=== PATIENT | female | born 1985 | race African-American/Black ===

== ENCOUNTER 2017-11-06 11:33 | Emergency (ER) | payer OTHER ==
[2017-11-06 11:50] VITALS: BP 124/61; PULSE 99; TEMP 98.5; BMI 20.3
--- NOTE | 2017-11-06 12:22 | PDOC ---
History of Present Illness <Liyah Gann - Last Filed: 11/06/17 15:03> - History of Present Illness Initial Comments: Healthy 32 year old previously healthy female presenting with sudden onset facial flushing, one episode of NBNB vomit, and lower abdominal mcelroy 6 hours before admission. The symptoms were novel, sudden onset, and spontaneously resolved without intervention. Denies recent fevers, chills, chest pain, urinary symptoms, or other symptoms. 11/06/17 14:38 <Brittany Grijalva - Last Filed: 11/06/17 16:14> - General Chief Complaint: Pain Stated Complaint: ABD PAIN, LIGHTHEADED Time Seen by Provider: 11/06/17 12:22 Past History <Liyah Gann - Last Filed: 11/06/17 15:03> - Past Medical History COPD: No Other medical history: DENIES. - Suicide/Smoking/Psychosocial Hx Smoking History: Former smoker Have you smoked in the past 12 months: No If you are a former smoker, when did you quit?: 2009 Information on smoking cessation initiated: No Hx Alcohol Use: No Drug/Substance Use Hx: No Substance Use Type: None <Brittany Grijalva - Last Filed: 11/06/17 16:14> - Past Medical History Allergies/Adverse Reactions: Allergies Allergy/AdvReac Type Severity Reaction Status Date / Time No Known Drug Allergies Allergy Verified 11/06/17 11:46 seasonal Allergy Uncoded 11/06/17 11:46 Home Medications: Ambulatory Orders Cephalexin Monohydrate [Keflex -] 500 mg PO BID #10 capsule 11/06/17 Review of Systems - Review of Systems Constitutional: No: Chills, Diaphoresis, Fever, Loss of Appetite HEENTM: No: Blurred Vision, Recent change in vision Respiratory: No: Cough, Shortness of Breath, Wheezing, Productive cough Cardiac (ROS): No: Chest Pain, Edema ABD/GI: Yes: Nausea, Vomiting. No: Diarrhea : No: Burning, Dysuria, Discharge Musculoskeletal: No: Back Pain, Joint Pain Integumentary: No: Bruising, Change in Color, Lesions Neurological: No: Headache, Numbness, Paresthesia Psychiatric: No: Anxiety, Depression <Brittany Grijalva - Last Filed: 11/06/17 16:14> *Physical Exam - Vital Signs Last Vital Signs Temp Pulse Resp BP Pulse Ox 98.5 F 99 H 17 124/61 100 11/06/17 11:47 11/06/17 11:47 11/06/17 11:47 11/06/17 11:47 11/06/17 11:47 <Liyah Gann - Last Filed: 11/06/17 15:03> - Vital Signs Last Vital Signs Temp Pulse Resp BP Pulse Ox 98.5 F 99 H 17 124/61 100 11/06/17 11:47 11/06/17 11:47 11/06/17 11:47 11/06/17 11:47 11/06/17 11:47 - Physical Exam General Appearance: Yes: Nourished, Appropriately Dressed. No: Apparent Distress HEENT: positive: EOMI, DILCIA, Normal ENT Inspection, Normal Voice Neck: positive: Trachea midline, Normal Thyroid, Supple. negative: Tender, Rigid Respiratory/Chest: positive: Lungs Clear, Normal Breath Sounds. negative: Chest Tender, Respiratory Distress, Accessory Muscle Use Cardiovascular: positive: Regular Rhythm, Regular Rate Gastrointestinal/Abdominal: positive: Normal Bowel Sounds, Flat, Soft. negative : Tender Musculoskeletal: positive: Normal Inspection Extremity: positive: Normal Capillary Refill, Normal Inspection, Normal Range of Motion. negative: Tender Integumentary: positive: Normal Color, Dry, Warm Neurologic: positive: Fully Oriented, Alert, Normal Mood/Affect, Normal Response , Motor Strength 5/5 <Brittany Grijalva - Last Filed: 11/06/17 16:14> ED Treatment Course - ADDITIONAL ORDERS Additional order review: Laboratory Results 11/06/17 13:59 Urine Color Lt. yellow Urine Appearance Clear Urine pH 5.5 Ur Specific [place] >= 1.030 Urine Protein Negative Urine Glucose (UA) Negative Urine Ketones Trace H Urine Blood Trace H Urine Nitrite Negative Urine Bilirubin Negative Urine Urobilinogen 0.2 Ur Leukocyte Esterase 1+ H Urine WBC (Auto) 26 Urine RBC (Auto) 11 Ur Epithelial Cells Few Urine Mucus Many Urine HCG, Qual Negative <Liyah Gann - Last Filed: 11/06/17 15:03> Medical Decision Making - Medical Decision Making 32 week old female with sudden onset vomiting, nausea, and sharp abdominal pain that was quick, sudden, and self-resolving. Denies current symptoms, non- , and UA demonstrating UTI. Will DC with abx and PCP follow up. 11/06/17 16:11 <Brittany Grijalva - Last Filed: 11/06/17 16:14> *DC/Admit/Observation/Transfer - Discharge Dispostion Admit: No <Liyah Gann - Last Filed: 11/06/17 15:03> <Brittany Grijalva - Last Filed: 11/06/17 16:14> Diagnosis at time of Disposition: UTI (urinary tract infection) Qualifiers: Urinary tract infection type: acute cystitis Hematuria presence: without hematuria Qualified Code(s): N30.00 - Acute cystitis without hematuria - Discharge Dispostion Disposition: HOME Condition at time of disposition: Stable - Prescriptions Prescriptions: Cephalexin Monohydrate [Keflex -] 500 mg PO BID #10 capsule - Patient Instructions Printed Discharge Instructions: DI for Urinary Tract Infection (UTI) - Post Discharge Activity Forms/Work/School Notes: Back to Work
--- NOTE | 2017-11-06 12:36 | PDOC ---
Attending Attestation - HPI HPI: 11/06/17 16:04 The patient is a 32 year old female with no significant PMH who presents to the emergency department with facial flushing, one episode of non bloody, non bilious vomit and mild, lower abdominal pain. The patient states her symptoms were of sudden onset and resolved on their own prior to arrival to the ER. The patient denies chest pain, shortness of breath, headache and dizziness. Denies fever, chills, nausea, vomit, diarrhea and constipation. Denies dysuria, frequency, urgency and hematuria. Allergies: NKA Past surgical history: None reported. Social history: No reported alcohol, drug, or cigarette use. <Bhakti Her - Last Filed: 11/06/17 16:05> - Resident Resident Name: Brittany Grijalva - ED Attending Attestation I have performed the following: I have examined & evaluated the patient, The case was reviewed & discussed with the resident, I agree w/resident's findings & plan, Exceptions are as noted - Physicial Exam PE: GENERAL: Awake, alert, and fully oriented, in no acute distress HEAD: No signs of trauma EYES: PERRLA, EOMI, sclera anicteric, conjunctiva clear ENT: Auricles normal inspection, hearing grossly normal, nares patent, oropharynx clear without exudates. Moist mucosa NECK: Normal ROM, supple, no lymphadenopathy, JVD, or masses LUNGS: Breath sounds equal, clear to auscultation bilaterally. No wheezes, and no crackles HEART: Regular rate and rhythm, normal S1 and S2, no murmurs, rubs or gallops ABDOMEN: Soft, nontender, normoactive bowel sounds. No guarding, no rebound. No masses EXTREMITIES: Normal range of motion, no edema. No clubbing or cyanosis. No cords, erythema, or tenderness NEUROLOGICAL: Cranial nerves II through XII grossly intact. Normal speech, normal gait SKIN: Warm, Dry, normal turgor, no rashes or lesions noted. - Medical Decision Making Pain resolved upon arrival to ED. No signs of acute abdomen. +UA, will treat with abx. Stable for DC home. <Liyah Gann - Last Filed: 11/07/17 20:49>
[2017-11-06 14:19] LABS: HCG,QUALITATIVE URINE NEGATIVE
[2017-11-06 14:30] LABS: PH,URINE 5.5 (5.0-8.0); URINE APPEARANCE CLEAR; URINE BILIRUBIN NEGATIVE (NEGATIVE); URINE COLOR LT. YELLOW; URINE GLUCOSE (UA) NEGATIVE (NEGATIVE); URINE KETONE TRACE (NEGATIVE); URINE NITRITE NEGATIVE (NEGATIVE); URINE PROTEIN NEGATIVE (NEGATIVE); URINE UROBILINOGEN 0.2 mg/dL (0.2-1.0)
[2017-11-06 14:48] LABS: URINE BLOOD TRACE (NEGATIVE); URINE LEUK ESTERASE 1+ (NEGATIVE)
[2017-11-06 14:52] LABS: EPI CELLS FEW /HPF (FEW); URINE MUCUS MANY
== END 2017-11-06 15:07 | disposition home or self-care (01) ==
LOC: JER 11:33
DX: N30.00 Acute cystitis without hematuria (principal)
CPT/HCPCS: 81003; 81015; 84703; 99282-25

== ENCOUNTER 2021-04-15 13:51 | Emergency (ER) | payer OTHER ==
[2021-04-15 14:01] VITALS: BP 99/64; PULSE 89; TEMP 97; BMI 20.3
[2021-04-15] MEDS ORDERED: KETOROLAC TROMETHAMINE 30 MG/1 ML VIAL IM ONE (15:06)
== END 2021-04-15 15:43 | disposition home or self-care (01) ==
LOC: JERFT 13:51 → JER 13:51 → JERFT 15:43
PROC: 3E023GC Introduction of Other Therapeutic Substance into Muscle, Percutaneous Approach (ICD-10-PCS; principal; 2021-04-15)
DX: S96.912A Strain of unspecified muscle and tendon at ankle and foot level, left foot, initial encounter (principal); X50.9XXA Other and unspecified overexertion or strenuous movements or postures, initial encounter
CPT/HCPCS: 73610-TC-LT-FY; 73630-TC-LT; 99284-25